=== PATIENT | female | born 1985 | race African-American/Black ===

== ENCOUNTER 2018-04-21 21:57 | Emergency (ER) | payer OTHER ==
[2018-04-21 22:42] VITALS: TEMP 98.5; BMI 26.6
[2018-04-21] MEDS ORDERED: METOCLOPRAMIDE HCL INJECTION 10 MG/2 ML VIAL IVPB ONE (22:59)
[2018-04-21] MEDS ORDERED: ACETAMINOPHEN 1000 MG/100 ML VIAL (NON FORMULARY) IVPB ONE (22:59)
[2018-04-21] MEDS ORDERED: SODIUM CHLORIDE 1,000 ML IV STA (22:59)
[2018-04-21 23:21] LABS: BASO % 0.6 % (0-2.0); EOS % 3.2 % (0-4.5); HEMOGLOBIN 13.1 GM/dL (10.7-15.3); LYMPH % 26.2 % (8-40); MCH 31.3 pg (25.7-33.7); MCHC 34.5 g/dl (32.0-36.0); MEAN CELL VOLUME 90.8 fl (80-96); MEAN PLT VOLUME 7.9 fl (7.5-11.1); MONO % 7.7 % (3.8-10.2); NEUT % 62.3 % (42.8-82.8); PLATELET COUNT 289 K/MM3 (134-434); RBC 4.19 M/mm3 (3.60-5.2); RDW 13.1 % (11.6-15.6); WHITE BLOOD COUNT 7.5 K/mm3 (4.0-10.0)
[2018-04-21 23:45] LABS: ANION GAP 9 (8-16); BILIRUBIN,TOTAL 0.5 mg/dL (0.2-1.0); BLOOD UREA NITROGEN 10 mg/dL (7-18); CALCIUM 8.8 mg/dL (8.5-10.1); CHLORIDE 105 mmol/L (98-107); CO2 26 mmol/L (21-32); CREATININE 0.8 mg/dL (0.55-1.02); GLUCOSE,RANDOM 89 mg/dL (74-106); SGOT/AST 16 U/L (15-37); SGPT/ALT 18 U/L (12-78); SODIUM 140 mmol/L (136-145); TOT PROT 6.8 g/dl (6.4-8.2)
[2018-04-21 23:46] LABS: ALK PHOS 47 U/L (45-117)
[2018-04-21] MEDS ORDERED: ACETAMINOPHEN INJECTION 100 ML IVPB ONE (23:51)
[2018-04-21] MEDS ORDERED: METOCLOPRAMIDE HCL INJECTION 10 MG/2 ML VIAL ONE (23:51)
[2018-04-21 23:57] LABS: URINE APPEARANCE CLEAR; URINE BILIRUBIN NEGATIVE (<2.0 mg/dL); URINE COLOR LTYELLOW; URINE GLUCOSE (UA) NEGATIVE (NEGATIVE); URINE KETONE NEGATIVE (NEGATIVE); URINE NITRITE NEGATIVE (NEGATIVE); URINE PROTEIN NEGATIVE (NEGATIVE)
--- NOTE | 2018-04-21 23:57 | PDOC ---
History of Present Illness <Sydnie Zhao - Last Filed: 04/22/18 01:59> - History of Present Illness Initial Comments: 04/21/18 23:52 The patient is a 32 year old female with no significant past medical history who presents to the ED complaining of several days of constipation and abdominal pain. She states she was producing very small bowel movements for about a week and, over the past few days, has not been able to produce any stool. She also complains of associated right lower quadrant pain. No N/V/D. No vaginal discharge/bleeding. No dysuria. Of note, the patient also complains of several days of bifrontal headache. Has had similar headaches in the past. Denies thunderclap or worst headache of life. Denies nausea, vomiting. No fever or chills. No neck stiffness. No chest pain or shortness of breath. Denies visual changes, denies weakness/numbness in any extremity. <Aakash Cruz - Last Filed: 04/22/18 02:11> - General Chief Complaint: Headache Stated Complaint: HEADACHE,BLURRY VISION Time Seen by Provider: 04/21/18 22:47 Past History <Sydnie Zhao - Last Filed: 04/22/18 01:59> - Past Medical History COPD: No Other medical history: Seasonal allergies - Suicide/Smoking/Psychosocial Hx Smoking History: Never smoked Have you smoked in the past 12 months: Yes Information on smoking cessation initiated: No Hx Alcohol Use: No Drug/Substance Use Hx: No Substance Use Type: Alcohol <Aakash Cruz - Last Filed: 04/22/18 02:11> - Past Medical History Allergies/Adverse Reactions: Allergies Allergy/AdvReac Type Severity Reaction Status Date / Time No Known Allergies Allergy Verified 04/21/18 22:29 Home Medications: Ambulatory Orders Etonogestrel [Nexplanon] 68 mg SQ DAILY 04/22/18 Fluticasone Prop 0.05% Nasal [Flonase -] 1 spray NS DAILY 04/22/18 Loratadine [Claritin] 10 mg PO DAILY 04/22/18 Review of Systems - Review of Systems Comments:: 04/21/18 23:55 "GENERAL/CONSTITUTIONAL: No fever or chills. No weakness. HEAD, EYES, EARS, NOSE AND THROAT: No change in vision. No ear pain or discharge. No sore throat. CARDIOVASCULAR: No chest pain or shortness of breath. RESPIRATORY: No cough, wheezing, or hemoptysis. GASTROINTESTINAL: +Constipation, RLQ pain. No nausea, vomiting, diarrhea. GENITOURINARY: No dysuria, frequency, or change in urination. MUSCULOSKELETAL: No joint or muscle swelling or pain. No neck or back pain. SKIN: No rash NEUROLOGIC: +Headache. No vertigo, loss of consciousness, or change in strength/ sensation. ENDOCRINE: No increased thirst. No abnormal weight change. HEMATOLOGIC/LYMPHATIC: No anemia, easy bleeding, or history of blood clots. ALLERGIC/IMMUNOLOGIC: No hives or skin allergy." <Aakash Cruz - Last Filed: 04/22/18 02:11> *Physical Exam - Vital Signs Last Vital Signs Temp Pulse Resp BP Pulse Ox 98.5 F 71 16 125/72 100 04/21/18 22:29 04/21/18 22:29 04/21/18 22:29 04/21/18 22:29 04/21/18 22:29 <Sydnie Zhao - Last Filed: 04/22/18 01:59> - Vital Signs Last Vital Signs Temp Pulse Resp BP Pulse Ox 98.5 F 71 16 125/72 100 04/21/18 22:29 04/21/18 22:29 04/21/18 22:29 04/21/18 22:29 04/21/18 22:29 - Physical Exam Comments: 04/21/18 23:56 "GENERAL: Awake, alert, and fully oriented, in no acute distress. HEAD: No signs of trauma EYES: PERRLA, EOMI, sclera anicteric, conjunctiva clear ENT: Auricles normal inspection, hearing grossly normal, nares patent, oropharynx clear without exudates. Moist mucosa NECK: Nontender, no stepoffs, Normal ROM, supple, no lymphadenopathy, JVD, or masses LUNGS: Breath sounds equal, clear to auscultation bilaterally. No wheezes, and no crackles HEART: Regular rate and rhythm, normal S1 and S2, no murmurs, rubs or gallops ABDOMEN: + RLQ tenderness, normoactive bowel sounds. No guarding, no rebound. No masses EXTREMITIES: Normal range of motion, no edema. No clubbing or cyanosis. No cords, erythema, or tenderness NEUROLOGICAL: Cranial nerves II through XII intact. 5/5 strength and sensation in all extremities, Normal speech, normal gait, normal cerebellar function SKIN: Warm, Dry, normal turgor, no rashes or lesions noted. : No CMT, no vaginal discharge/bleeding <Aakash Cruz - Last Filed: 04/22/18 02:11> ED Treatment Course - LABORATORY CBC & Chemistry Diagram: 04/21/18 23:12 04/21/18 23:12 - ADDITIONAL ORDERS Additional order review: Laboratory Results 04/21/18 04/21/18 23:44 23:12 Sodium 140 Potassium 4.0 Chloride 105 Carbon Dioxide 26 Anion Gap 9 BUN 10 Creatinine 0.8 Creat Clearance w eGFR > 60 Random Glucose 89 Calcium 8.8 Total Bilirubin 0.5 AST 16 ALT 18 Alkaline Phosphatase 47 Total Protein 6.8 Albumin 4.0 Urine Color Ltyellow Urine Appearance Clear Urine pH 6.0 Ur Specific [place] 1.016 Urine Protein Negative Urine Glucose (UA) Negative Urine Ketones Negative Urine Blood Negative Urine Nitrite Negative Urine Bilirubin Negative Urine Urobilinogen 2.0 H Ur Leukocyte Esterase 2+ H Urine WBC (Auto) 25 Urine RBC (Auto) 2 Ur Epithelial Cells Few Urine Mucus Rare Urine HCG, Qual Negative 04/21/18 23:12 RBC 4.19 MCV 90.8 MCHC 34.5 RDW 13.1 MPV 7.9 Neutrophils % 62.3 Lymphocytes % 26.2 Monocytes % 7.7 Eosinophils % 3.2 Basophils % 0.6 - Medications Given in the ED: ED Medications Discontinued Medications Generic Name Dose Route Start Last Admin Trade Name Silvia PRN Reason Stop Dose Admin Acetaminophen 1,000 mg 04/21/18 22:59 04/22/18 00:01 Ofirmev Injection - IVPB 04/21/18 23:00 1,000 mg ONCE ONE Administration Sodium Chloride 1,000 mls @ 1,000 mls/hr 04/21/18 22:59 04/22/18 00:01 Normal Saline - IV 04/21/18 23:58 1,000 mls/hr ASDIR STA Administration Metoclopramide HCl 10 mg 04/21/18 22:59 04/22/18 00:01 Reglan Injection - IVPB 04/21/18 23:00 10 mg ONCE ONE Administration <Sydnie Zhao - Last Filed: 04/22/18 01:59> - LABORATORY CBC & Chemistry Diagram: 04/21/18 23:12 04/21/18 23:12 - ADDITIONAL ORDERS Additional order review: 04/21/18 23:12 RBC 4.19 MCV 90.8 MCHC 34.5 RDW 13.1 MPV 7.9 Neutrophils % 62.3 Lymphocytes % 26.2 Monocytes % 7.7 Eosinophils % 3.2 Basophils % 0.6 - RADIOLOGY Radiology Studies Ordered: Category Date Time Status ABDOMEN & PELVIS CT WITH CONTR [CT] Stat CT Scan 04/21/18 22:57 Ordered <Aakash Cruz - Last Filed: 04/22/18 02:11> Medical Decision Making - Medical Decision Making 04/22/18 01:59 CTAP, preliminary interpretation by Imaging Trial Consultant IMPRESSION: 2.8 cm ovarian cyst with small amount of pelvic free fluid. Small ventral hernia into which bowel minimally protrudes <Sydnie Zhao - Last Filed: 04/22/18 01:59> - Medical Decision Making 04/21/18 23:56 32 F with RLQ pain and constipation. Pain likely 2/2 constipation but will r/o acute appy. Pt also complaining of mild headache. No red flags for SAH or meningitis. - Labs - CTAP - IVF, tylenol, reglan 04/22/18 00:35 UA consistent with UTI. Labs otherwise normal. Pending CT scan 04/22/18 02:[address] read shows small ventral hernia Also R ovarian cyst and free fluid, likely 2/2 ruptured cyst. Pt reassessed - states she feels much better with tylenol and reglan. No abdominal pain, no headache at this time. Pt is well appearing, with normal vitals. Clinically stable for DC at this time. I discussed the physical exam findings, ancillary test results and final diagnoses with the patient. I answered all of the patient's questions. The patient was satisfied with the care received and felt comfortable with the discharge plan and treatment plan. The patient agrees to follow up with the primary care physician within 24-72 hours. <Aakash Cruz - Last Filed: 04/22/18 02:11> *DC/Admit/Observation/Transfer - Attestations Scribe Attestion: 04/22/18 01:59 Documentation prepared by Sydnie Zhao, acting as medical sales consultant for Aakash Cruz MD. <PavelSydnie - Last Filed: 04/22/18 01:59> - Attestations Physician Attestion: 04/22/18 02:05 I, Dr. Aakash Cruz MD, attest that this document has been prepared under my direction and personally reviewed by me in its entirety. I further attest, that it accurately reflects all work, treatment, procedures and medical decision -making performed by me. <Aakash Cruz - Last Filed: 04/22/18 02:11> Diagnosis at time of Disposition: Ovarian cyst - Discharge Dispostion Disposition: HOME - Referrals Referrals: ON STAFF,NOT [Primary Care Provider] - - Patient Instructions Printed Discharge Instructions: DI for Ovarian Cyst, DI for Urinary Tract Infection (UTI) Additional Instructions: Your CT scan shows that you may have had a ruptured ovarian cyst, which is likely the cause of your pain. Take ibuprofen as needed for pain. You also have a urinary tract infection. Take the antibiotics as prescribed to treat it. If you experience worsening pain, fevers, vomiting, or any other concerning symptoms, return to the ER immediately. Your CT scan also showed a small hernia. This is unlikely to be the cause of your symptoms, but you should follow up with a surgeon for evaluation as these sometimes need to be repaired surgically. Follow up with your primary doctor within 1 week. - Post Discharge Activity
[2018-04-21 23:58] LABS: URINE LEUK ESTERASE 2+ (NEGATIVE)
[2018-04-22 00:02] LABS: EPI CELLS FEW /HPF (FEW); URINE MUCUS RARE
[2018-04-22 00:15] LABS: HCG,QUALITATIVE URINE NEGATIVE
[2018-04-22] MEDS ORDERED: CEPHALEXIN MONOHYDRATE 500 MG CAPSULE (UD) PO ONE (02:10)
[2018-04-22] MEDS ORDERED: CEPHALEXIN MONOHYDRATE 250 MG CAPSULE (FP) ONE (02:49)
[2018-04-22 03:09] VITALS: BP 110/78; PULSE 89
== END 2018-04-22 03:08 | disposition home or self-care (01) ==
LOC: JER 21:57
PROC: 3E033GC Introduction of Other Therapeutic Substance into Peripheral Vein, Percutaneous Approach (ICD-10-PCS; principal; 2018-04-21)
PROC: 3E033NZ Introduction of Analgesics, Hypnotics, Sedatives into Peripheral Vein, Percutaneous Approach (ICD-10-PCS; 2018-04-21)
DX: N83.201 Unspecified ovarian cyst, right side (principal)
CPT/HCPCS: 36415; 74177-TC; 80053; 81003; 81015; 84703; 85025; 87086; 99281-25; J0131; J7030